=== PATIENT | male | born 1965 | race Caucasian/White ===

== ENCOUNTER 2017-05-17 14:58 | Emergency (ER) | payer MEDICAID ==
--- NOTE | 2017-05-17 15:30 | ED Physician Chart ---
Chief Complaint/HPI - Patient Information Date Seen:: 05/17/17 Time Seen:: 15:30 Chief Complaint:: LACERATION OF THE RIGHT SMALL FINGER OVER DIP History of Present Illness:: PT WAS USING A [employer] BAR AND IT SLIPPED AND CAUGHT HIM OVER THE DORSAL ASPECT OF THE FIFTH DIGIT OF THE RIGHT HAND. HAPPENED JUST PRIOR TO ARRIVAL AT THE HOSPITAL. TETANUS NOT UP TODAYE. THERE WAS NO BROKEN GLASS INVOLVED. THERE WAS NO NUMBNESS IN THE RT DISTAL LITTLE FINGER. THERE WAS NO INJURY TO ANY OTHER BODY PART. Allergies:: Allergies Allergy/AdvReac Type Severity Reaction Status Date / Time No Known Allergies Allergy Verified 05/17/17 15:10 Vitals:: Vital Signs - 8 hr 05/17/17 15:10 Temp 98.3 F RR 84 BP 152/74 O2 Sat % 98 Review of Systems - Review of Systems General/Constitutional: No fever, No chills, No weakness, No loss of appetite Skin: Skin lesions, No rash Head: No headache, No light-headedness Eyes: No loss of vision, No diplopia ENT: No earache, No sore throat, No tinnitus Neck: No neck pain, No stiffness Cardio Vascular: No chest pain, No edema Pulmonary: No SOB, No cough GI: No nausea, No vomiting, No diarrhea, No pain G/U: No dysuria Musculoskeletal: Bone or joint pain (PAIN OVER THE DIP OF THE RIGHT LITTLE FINGER.) Endocrine: No polyuria, No polydipsia Psychiatric: Prior psych history, No suicidal ideation Neurological: No syncope, No weakness, No paresthesia, No seizure Past Medical History - Past Medical History Past Medical History: No significant medical hx Family Medical History - Family Member Mother History Unknown: Yes Ethnicity: Physical Exam - Physical Examination General/Constitutional: Well-developed, well-nourished, No distress Other Gen/Cons comments:: EXAM WAS LIMITED TO THE RT HAND. Head: Atraumatic Eyes: Lids, conjuctiva normal, PERRL Skin: No rash, No ecchymosis Other Skin comments:: 2 CM LACERATION OVER THE RT LITTLE FING3R DIP. ENMT: External ears, nose nl Neck: Nontender, No JVD Respiratory: Nl effort/Exclusion Extremities: No tenderness or effusion, Full ROM, normal strength in all extremities, No edema Other Extremities comments:: THERE WAS A 2 CM SUPERFICIAL LACERATION. ON EXPLORATION OF THE WOUND, THERE WAS NO TENDON INJURY. DISTAL SENSATION WAS INTACT. THE TENDON FUNCTION IN THE SMALL FINGER WAS INTACT TO EXTENSION AND FLEXION. Neuro/Psych: Alert/oriented, Judgement/insight normal, Normal gait Labs/Radiology/EKG Results - Lab Results Results: NO LAB OR RADIOGRAPHIC STUDIES WERE INDICATED. Assessment - Assessment General Assessment: CASE SUMMARY: THE PATIENT HAD SUSTAINED A LACERATION OVER THE SMALL FINGER WHILE WORKING WITH A CROWBAR. THE LACERATION WAS CLEAN AND TENDON FUNCTION IN THE RT HAND WERE ALL INTACT. THE PATIENTS TETANUS STATUS WAS UP DATED. WOUND REPAIR: THE WOUND WAS CLEANED BY NORMAL SALINE IRRIGATION AND THE WOUND WAS EXPLORED. NO FB'S WERE FOUND. THERE WAS NO TENDON INVOLVEMENT. THE SKIN WAS PREPPED WITH BETADINE. ANESTHESIA WAS ACHIEVED USING 3 CC OF 1% LIDOCAINE. THE WOUND MARGINS WERE DEBRIDED WITH SCISSORS. THE WOUND WAS CLOSED WITH 3 INTERRUPTED 3-0 PROLENE SUTURES. THE WOUND WAS DRESSED WITH NEOSPORIN OINTMENT AND A DRY STERILE DRESSING. THE PATIENT TOLERATED THE PROCEDURE WELL. HE WILL RETURN IN 10 TO 14 DAYS FOR SUTURE REMOVAL. ED Septic Shock - . Is Septic Shock (SBP<90, OR Lactate>4 mmol\L) present?: No - <6hrs of presentation: Vital Signs: Vital Signs - 8 hr //17 15:10 Temp 98.3 F RR 84 BP 152/74 O2 Sat % 98 Reassessment (Disposition) - Reassessment Reassessment Condition:: Improved - Diagnosis Diagnosis:: SIMPLE 2 CM LONG LACERATION ON THE DORSAL ASPECT OF THE RIGHT LITTLE FINGER. ED Discharge Plan - Patient Disposition Admit/Discharge/Transfer: PT DISCHARGED HOME Condition at Disposition: Stable Instructions: Laceration Care, Adult
[2017-05-17] MEDS ORDERED: Triple Antibiotic 0.94 gm Pkt TP ONE (15:54)
[2017-05-17] MEDS ORDERED: Triple Antibiotic 0.94 gm Pkt TP STA (15:55)
== END 2017-05-17 16:30 | disposition home or self-care (01) ==
LOC: ER 14:58
DX: S61.216A Laceration without foreign body of right little finger without damage to nail, initial encounter (principal); X58.XXXA Exposure to other specified factors, initial encounter; Y93.89 Activity, other specified; Y92.89 Other specified places as the place of occurrence of the external cause; Y99.8 Other external cause status
CPT/HCPCS: 12001; A4217; J2001; Z7502; Z7610

== ENCOUNTER 2017-05-30 14:26 | Emergency (ER) | payer MEDICAID ==
--- NOTE | 2017-05-30 15:40 | ED Physician Chart ---
Chief Complaint/HPI - Patient Information Date Seen:: 05/30/17 Time Seen:: 14:46 Chief Complaint:: wound check History of Present Illness:: THIS PATIENT WAS HERE ABOUT TEN DAYS AGO AND WAS TREATED WITH THE SUTURING OF THE RIGHT [address] BARROW. HE IS HERE FOR SUTURE REMOVER. Allergies:: Allergies Allergy/AdvReac Type Severity Reaction Status Date / Time No Known Allergies Allergy Verified 05/17/17 15:10 Vitals:: Vital Signs - 8 hr 05/30/17 14:41 Temp 97.8 F HR 97 RR 17 BP 133/66 O2 Sat % 99 Historian:: Patient Review:: Nurse's Note Reviewed Review of Systems - Review of Systems General/Constitutional: No fever, No chills, No weight loss, No weakness, No diaphoresis, No edema, No loss of appetite Skin: No skin lesions, No rash, No bruising Head: No headache, No light-headedness Eyes: No loss of vision, No pain, No diplopia ENT: No earache, No nasal drainage, No sore throat, No tinnitus Neck: No neck pain, No swelling, No thyromegaly, No stiffness, No mass noted Cardio Vascular: No chest pain, No palpitations, No PND, No orthopnea, No edema Pulmonary: No SOB, No cough, No sputum, No wheezing GI: No nausea, No vomiting, No diarrhea, No pain, No melena, No hematochezia, No constipation, No hematemesis G/U: No dysuria, No frequency, No hematuria Musculoskeletal: No bone or joint pain, No back pain, No muscle pain, Other ( RIGHT FINGER ) Endocrine: No polyuria, No polydipsia Psychiatric: No prior psych history, No depression, No anxiety, No suicidal ideation Hematopoietic: No bruising, No lymphadenopathy Allergic/Immuno: No urticaria, No angioedema Neurological: No syncope, No focal symptoms, No weakness, No paresthesia, No headache, No seizure, No dizziness, No confusion, No vertigo Past Medical History - Past Medical History Obtainable: No Past Medical History: No significant medical hx Family History: None Social History: Non Smoker, No Alcohol, No Drug Use Surgical History: None Psychiatricy History: None Family Medical History - Family Member Mother History Unknown: Yes Ethnicity: Physical Exam - Physical Examination General/Constitutional: Awake, Well-developed, well-nourished, Alert, No distress, GCS 15, Non-toxic appearing, Ambulatory Head: Atraumatic Eyes: Lids, conjuctiva normal, PERRL, EOMI Skin: Nl inspection, No rash, No skin lesions, No ecchymosis, Well hydrated, No lymphadenopathy ENMT: External ears, nose nl, Nasal exam nl, Lips, teeth, gums nl Neck: Nontender, Full ROM w/o pain, No JVD, No nuchal rigidity, No bruit, No mass, No stridor Respiratory: Nl effort/Exclusion, Clear to Auscultation, No Wheeze/Rhonchi/Rales Cardio Vascular: RRR, No murmur, gallop, rubs, NL S1 S2 GI: No tenderness/rebounding/guarding, No organomegaly, No hernia, Normal BS's, Nondistended, No mass/bruits, No McBurney tenderness : No CVA tenderness Extremities: No tenderness or effusion, Full ROM, normal strength in all extremities, No edema, Normal digits & nails Other Extremities comments:: THE RIGHT 5TH FINGER HEALING LACERATION WITH SIGN OF INFECTION WITH THREE SUTURES IN PLACE. Neuro/Psych: Alert/oriented, DTR's symmetric, Normal sensory exam, Normal motor strength, Judgement/insight normal, Mood normal, Normal gait, No focal deficits Misc: normal gait, Normal back, No paraspinal tenderness Assessment - Assessment General Assessment: THE WOUND WAS WELL HEALED AND THE SUTURES WERE REMOVED WITHOUT COMPLICATIONS. ED Septic Shock - . Is Septic Shock (SBP<90, OR Lactate>4 mmol\L) present?: No - <6hrs of presentation: Vital Signs: Vital Signs - 8 hr 05/30/17 14:41 Temp 97.8 F HR 97 RR 17 BP 133/66 O2 Sat % 99 Reassessment (Disposition) - Reassessment Reassessment Condition:: Improved - Diagnosis Diagnosis:: SUTURES REMOVED - Aftercare/Follow up Instructions Aftercare/Follow-Up Instructions:: Counseled pt regarding lab results/diagnosis & need follow up, Refer to Discharge Instructions, Counseled pt & family regarding lab results/diagnosis & need follow up - Patient Disposition Discharge/Transfer:: Home Condition at Disposition:: Improved ED Discharge Plan - Patient Disposition Admit/Discharge/Transfer: PT DISCHARGED HOME Condition at Disposition: Improved Instructions: Suture Removal Additional Instructions: TOLERATED.
== END 2017-05-30 15:15 | disposition home or self-care (01) ==
LOC: ER 14:26
DX: Z48.01 Encounter for change or removal of surgical wound dressing (principal)
CPT/HCPCS: Z7502